=== PATIENT | male | born 1945 | race Caucasian/White ===

== ENCOUNTER 2018-10-24 05:15 | Emergency (ER) | payer OTHER ==
[~2018-10-24] VITALS: Ht 177.8 cm; Wt 125.6 kg
[~2018-10-24 05:15] MED LIST: ACIDOPHILUS1 EAC1 PO; ASPI325 PO; ASPI81CH PO; ATOR20 PO; CALCAVITD PO; CEFAZOLIN2 GM/50 M1 IV; CYCL10 PO; DOCU100 PO; ELIQUIS5 MG PO; ERGO400 PO; FERR325 PO; FISH1000 PO; Flonase 0.05% N16 GM INH; Flovent Diskus50 MCG; GABA300 PO; GLUCHON PO; HYDACE10B PO; Hair, Skin & N1 EACH PO; IBUP800 PO; INDO50 PO; LAVAP17G PO; LISHYD2025 PO; MORP30ER PO; Metoprolol Tar100 MG PO; NAPR500 PO; OMEG1CAP30 PO; OMEP20ER PO; OXYACE5T PO; OXYC5 PO; Omeprazole20 M1 PO; Prilosec Otc20 MG PO; TAMS.4ER PO; TERA5 PO; XARELTO20 MG PO; ZESTORETIC 20-121 EA PO
[2018-10-24] MEDS ORDERED: METPRE4 PO (05:38)
[2018-10-24] MEDS ORDERED: Zantac150 MG PO (05:39)
[2018-10-24] MEDS ORDERED: Vitamin D2000 UNIT PO (05:39)
[2018-10-24] MEDS ORDERED: ELIQUIS2.5 MG PO (05:40)
[2018-10-24] MEDS ORDERED: TORSE20 PO (05:41)
[2018-10-24] MEDS ORDERED: TIZA4 PO (05:42)
[2018-10-24 06:09] LABS: BASOPHILS ABSOLUTE AUTO 0.04 K/mm3 (0.00-0.23); BASOPHILS PERCENT AUTO 0 % (0-2); EOSINOPHILS ABSOLUTE AUTO 0.16 K/mm3 (0.00-0.68); EOSINOPHILS PERCENT AUTO 2 % (0-6); Hematocrit 39.4 % (37.0-53.0); IMMATURE GRAN ABSOLUTE AUTO 0.04 K/mm3 (0.00-0.10); IMMATURE GRAN PERCENT AUTO 0 % (0-1); LYMPHOCYTES ABSOLUTE AUTO 2.28 K/mm3 (0.84-5.20); LYMPHOCYTES PERCENT AUTO 24 % (21-46); MONOCYTES PERCENT AUTO 15 % (4-13); Mean Corpuscular HGB 29.4 pg (26.0-34.0); Mean Corpuscular Volume 89 fL (80-100); Mean Platelet Volume 9.8 fL (9.1-12.4); NEUTROPHILS ABSOLUTE AUTO 5.74 K/mm3 (1.96-9.15); NEUTROPHILS PERCENT AUTO 59 % (41-73); Platelet Count 284 K/mm3 (150-400); RDW Standard Deviation 42.5 fL (35.1-46.3); Red Blood Cell Count 4.42 M/mm3 (4.30-5.90); White Blood Cell Count 9.66 K/mm3 (4.00-11.30)
[2018-10-24 06:22] LABS: Troponin I <0.015 ng/mL (0.000-0.040)
[2018-10-24 06:23] LABS: Alanine Aminotransfer (ALT/SGP 25 U/L (12-78); Albumin, Blood 3.3 g/dL (3.4-5.0); Albumin/Globulin Ratio 0.9 (0.8-1.8); Alk Phos 52 U/L (50-136); Anion Gap 9 mmol/L (6-16); Aspartate Aminotrans (AST/SGOT 20 U/L (12-37); Bilirubin, Total 0.4 mg/dL (0.1-1.0); Blood Urea Nitrogen 31 mg/dL (8-24); CO2, Blood 29 mmol/L (21-32); Calcium, Blood 8.9 mg/dL (8.5-10.1); Chloride, Blood 102 mmol/L (98-108); Creatinine, Blood 0.89 mg/dL (0.60-1.20); Globulin, Blood 3.8 g/dL (2.2-4.0); Glomerular Filtration Rate >60 (60-); Glucose, Blood 90 mg/dL (70-99); Potassium, Blood 3.2 mmol/L (3.5-5.5); Sodium, Blood 140 mmol/L (136-145); Total Protein, Blood 7.1 g/dL (6.4-8.2)
== END 2018-10-24 11:29 | disposition home or self-care (01) ==
LOC: ER 05:15
PROVIDERS: Emergency Medicine
DX: R07.9 Chest pain, unspecified (principal); G89.29 Other chronic pain; M54.9 Dorsalgia, unspecified; Z87.891 Personal history of nicotine dependence; Z88.5 Allergy status to narcotic agent; Z88.1 Allergy status to other antibiotic agents; Z88.8 Allergy status to other drugs, medicaments and biological substances; Z79.899 Other long term (current) drug therapy; Z79.891 Long term (current) use of opiate analgesic; Z79.01 Long term (current) use of anticoagulants
CPT/HCPCS: 36415; 71046; 80053; 83690; 84484; 85025; 93005; 93010; 96374; 96375; 99285-25; J1170; J2270; J2405

== ENCOUNTER 2020-03-15 14:01 | Inpatient (IN) | payer OTHER ==
[~2020-03-15] VITALS: Ht 177.8 cm; Wt 142.0 kg
[~2020-03-15 14:01] MED LIST changes: +ELIQUIS2.5 MG PO; -LAVAP17G PO; +METPRE4 PO; +MIRALAX17 GM PO; +TIZA4 PO; +TORSE20 PO; +Vitamin D2000 UNIT PO; +Zantac150 MG PO
[2020-03-15 14:43] LABS: BASOPHILS ABSOLUTE AUTO 0.07 K/mm3 (0.00-0.23); BASOPHILS PERCENT AUTO 1 % (0-2); EOSINOPHILS ABSOLUTE AUTO 0.19 K/mm3 (0.00-0.68); EOSINOPHILS PERCENT AUTO 2 % (0-6); Hematocrit 44.8 % (37.0-53.0); Hemoglobin 13.4 g/dL (13.5-17.5); IMMATURE GRAN ABSOLUTE AUTO 0.03 K/mm3 (0.00-0.10); IMMATURE GRAN PERCENT AUTO 0 % (0-1); LYMPHOCYTES ABSOLUTE AUTO 1.33 K/mm3 (0.84-5.20); LYMPHOCYTES PERCENT AUTO 14 % (21-46); MONOCYTES ABSOLUTE AUTO 0.96 K/mm3 (0.16-1.47); MONOCYTES PERCENT AUTO 10 % (4-13); Mean Corpuscular HGB 26.6 pg (26.0-34.0); Mean Corpuscular HGB Conc 29.9 g/dL (31.5-36.5); Mean Corpuscular Volume 89 fL (80-100); Mean Platelet Volume 10.4 fL (9.1-12.4); NEUTROPHILS ABSOLUTE AUTO 7.07 K/mm3 (1.96-9.15); NEUTROPHILS PERCENT AUTO 73 % (41-73); Platelet Count 244 K/mm3 (150-400); RDW Coefficient Variation 15.4 % (11.7-14.2); RDW Standard Deviation 50.1 fL (35.1-46.3); Red Blood Cell Count 5.03 M/mm3 (4.30-5.90); White Blood Cell Count 9.65 K/mm3 (4.00-11.30)
[2020-03-15 15:05] LABS: Alanine Aminotransfer (ALT/SGP 28 U/L (12-78); Albumin, Blood 3.1 g/dL (3.4-5.0); Albumin/Globulin Ratio 0.7 (0.8-1.8); Alk Phos 62 U/L (50-136); Anion Gap 7 mmol/L (6-16); Aspartate Aminotrans (AST/SGOT 24 U/L (12-37); Bilirubin, Total 0.7 mg/dL (0.1-1.0); Blood Urea Nitrogen 27 mg/dL (8-24); Bun/Creatinine Ratio 28.6 (12.0-20.0); CO2, Blood 30 mmol/L (21-32); Calcium, Blood 9.1 mg/dL (8.5-10.1); Chloride, Blood 100 mmol/L (98-108); Creatinine, Blood 0.94 mg/dL (0.60-1.20); Globulin, Blood 4.2 g/dL (2.2-4.0); Glomerular Filtration Rate >60 (60-); Glucose, Blood 110 mg/dL (70-99); Potassium, Blood 4.4 mmol/L (3.5-5.5); Sodium, Blood 137 mmol/L (136-145); Total Protein, Blood 7.3 g/dL (6.4-8.2); Troponin I 0.015 ng/mL (0.000-0.040)
[2020-03-15] MEDS ORDERED: PREGABALIN100 MG PO (15:54)
[2020-03-15] MEDS ORDERED: TIZANIDINE HCL2 M1 PO (15:55)
[2020-03-15] MEDS ORDERED: METO50ER PO (15:56)
[2020-03-15] MEDS ORDERED: POTA10T PO (15:56)
[2020-03-15] MEDS ORDERED: PEPCID40 MG PO (15:57)
[2020-03-15] MEDS ORDERED: FLUT.05NI (15:58)
[2020-03-15 18:36] LABS: Influenza A, PCR Negative (NEGATIVE); Influenza B, PCR Negative (NEGATIVE); Resp Syncytial Virus, PCR Negative (NEGATIVE); SARS-Cov-2 (COVID-19) PCR, MMC Negative (NEGATIVE)
--- NOTE | 2020-03-15 20:54 | NUR ---
PATIENT IS A NEW ADMIT FROM THE ED. AXOX 4 AND THREE PERSON TRANFER FROM [facility] TO BED. SOB W/EXERTION. ON 2L O2 NC AND RA BASELINE. REPORTS GENERAL PAIN AND RECEIVED NORCO IN ED. DENIES N/V. TELEMETRY PLACED AND TECH REPORTS A-FIB ONE TEENS. ORIENTED TO ROOM AND CALL LIGHT. REPORTS NO TV AT THIS TIME. CALL LIGHT IN REACH.
--- NOTE | 2020-03-15 23:11 | NUR ---
PATIENT HAVING INCREASED ANXIETY WITH SOB. REQUEST FLONASE AND GIVEN PER EMAR. REPORTS HELPS WITH HIS BREATHING. NORCO GIVEN PER EMAR FOR BACK PAIN. CALL LIGHT IN REACH.
--- NOTE | 2020-03-16 01:25 | NUR ---
HOSPITALIST DR LIMON ORDER ATIVAN 0.5 MG FOR INCREASED ANXIETY X ONE.
--- NOTE | 2020-03-16 04:01 | NUR ---
SHIFT SUMMARY PATIENT ANXIOUS T/O SHIFT. AXOX 3 AND BEDREST. ON 4L O2 NC AND SOB W/EXERTION. HOSPITALIST DR LIMON ORDERED PO ATIVAN 0.5 MG X ONE FOR ANXIETY. PATIENT ABLE TO SLEEP AFTER ANXIETY REDUCED. NORCO GIVEN BACK/SHOULDER PAIN AND ZANAFLEX GIVEN FOR MUSCLE SPASM. PIV REMAINS INTACT. VETERINARY PRACTITIONER REPORTS AFIB RVR IN THE ONE TEENS. USING URINAL AT BEDSIDE WITH ASSIST. LASIX GIVEN IN ED. TAKES MEDICATION WHOLE WITH WATER. VSS/AFEBRILE. CALL LIGHT IN REACH. BED IN LOWEST POSITION. WILL CONTINUE TO MONITOR UNTIL DAY SHIFT NURSE ASSUMES CARE.
[2020-03-16 05:04] LABS: BASOPHILS ABSOLUTE AUTO 0.06 K/mm3 (0.00-0.23); BASOPHILS PERCENT AUTO 1 % (0-2); EOSINOPHILS ABSOLUTE AUTO 0.04 K/mm3 (0.00-0.68); EOSINOPHILS PERCENT AUTO 0 % (0-6); Hematocrit 47.1 % (37.0-53.0); Hemoglobin 13.7 g/dL (13.5-17.5); IMMATURE GRAN ABSOLUTE AUTO 0.05 K/mm3 (0.00-0.10); IMMATURE GRAN PERCENT AUTO 1 % (0-1); LYMPHOCYTES ABSOLUTE AUTO 1.47 K/mm3 (0.84-5.20); LYMPHOCYTES PERCENT AUTO 14 % (21-46); MONOCYTES PERCENT AUTO 8 % (4-13); Mean Corpuscular HGB 26.8 pg (26.0-34.0); Mean Corpuscular HGB Conc 29.1 g/dL (31.5-36.5); Mean Corpuscular Volume 92 fL (80-100); Mean Platelet Volume 10.7 fL (9.1-12.4); NEUTROPHILS ABSOLUTE AUTO 7.85 K/mm3 (1.96-9.15); NEUTROPHILS PERCENT AUTO 76 % (41-73); Platelet Count 249 K/mm3 (150-400); RDW Coefficient Variation 15.4 % (11.7-14.2); RDW Standard Deviation 52.1 fL (35.1-46.3); Red Blood Cell Count 5.12 M/mm3 (4.30-5.90); White Blood Cell Count 10.27 K/mm3 (4.00-11.30)
[2020-03-16 05:23] LABS: Alanine Aminotransfer (ALT/SGP 34 U/L (12-78); Albumin, Blood 3.4 g/dL (3.4-5.0); Albumin/Globulin Ratio 0.8 (0.8-1.8); Alk Phos 67 U/L (50-136); Anion Gap 6 mmol/L (6-16); Aspartate Aminotrans (AST/SGOT 29 U/L (12-37); Bilirubin, Total 0.7 mg/dL (0.1-1.0); Blood Urea Nitrogen 34 mg/dL (8-24); Bun/Creatinine Ratio 30.1 (12.0-20.0); CO2, Blood 33 mmol/L (21-32); Chloride, Blood 98 mmol/L (98-108); Creatinine, Blood 1.13 mg/dL (0.60-1.20); Globulin, Blood 4.4 g/dL (2.2-4.0); Glomerular Filtration Rate >60 (60-); Glucose, Blood 117 mg/dL (70-99); Potassium, Blood 5.4 mmol/L (3.5-5.5); Sodium, Blood 137 mmol/L (136-145); Total Protein, Blood 7.8 g/dL (6.4-8.2)
[2020-03-16 12:22] LABS: PCO2 Arterial 68.9 mmHg (35-45); PO2 Arterial 52.3 mmHg (80-100); pH Blood Arterial 7.26 (7.35-7.45)
--- NOTE | 2020-03-16 13:25 | NUR ---
PT ARRIVED TO ROOM PCU 11 ON BIPAP WITH SETTINGS 16/10 AND FIO2 50%. Pt appears comfortable, dozing. VSS. WIll orient to room and unit when awake. Bed alarm on, Call light in reach.
--- NOTE | 2020-03-16 14:30 | NUR ---
PT ARRIVED TO PCU FROM MEDICAL FLOOR THIS AFTERNOON. PT VS STABLE WITH THE EXCEPTION OF THE INCREASED OXYGEN NEED. PT ARRIVED ON BIPAP, SETTINGS WHICH HAVE SINCE BEEN ADJUSTED BASED ON ABG RESULTS. PT IS TYPICALLY ON RA AT [facility]. PT HAS 2+ PITTING EDEMA BLE AND BUE. PT IS ON CARDIAC DIET BUT IS VERY LETHARGIC AND CURRENTLY NOT AROUSABLE ENOUGH FOR ANY PO INTAKE. LUNGS ARE COARSE BILATERAL UPPER LOBES AND DIM IN LOWER LOBES. PT HAS VERY DRY, TIGHT AND SHINY SKIN BLE. PT IS UNABLE TO ANSWER QUESTIONS DUE TO LETHARGY.
[2020-03-16 14:41] LABS: PCO2 Arterial 79.3 mmHg (35-45); PO2 Arterial 90.5 mmHg (80-100); pH Blood Arterial 7.23 (7.35-7.45)
--- NOTE | 2020-03-16 15:07 | NUR ---
Call to Dr. Farah regarding pt's worsening ABG. The pt is actually more awake than he was an hour ago, awakening to verbal stimuli and now asking for something to drink. New orders were received.
--- NOTE | 2020-03-16 15:47 | NUR ---
Echocardiogram completed.
--- NOTE | 2020-03-16 16:00 | NUR ---
Pt awakens easily to verbal stimuli, opens his eyes slightly and nods when asked if he would like a moist swab for his mouth. He was able to run the swab around his mouth a couple of times, and then assist with putting the bipap mask back on. Vital signs taken, remain stable. Resting with eyes closed, tolerating v60 bipap at this time. No family at the bedside at this time. Bed alarm is on for safety.
--- NOTE | 2020-03-16 18:11 | NUR ---
Pt awakened briefly and was pulling bipap mask off, saying he needed to pee about an hour ago. Spo2 quickly dropped from 93% to 83% without the mask on, and it was replaced without further resistance from the pt. He used the urinal while still lying in bed, and wearing the bipap. Attends change and repositioned to right side lying, still wearing bipap. IV restarts done as the IV was leaking on the left hand. He slept through the IV restarts, without any flinching at all. RT to repeat ABG at any time now.
[2020-03-16 18:38] LABS: PCO2 Arterial 74.6 mmHg (35-45); PO2 Arterial 74.1 mmHg (80-100); pH Blood Arterial 7.25 (7.35-7.45)
--- NOTE | 2020-03-16 19:23 | NUR ---
summary Marek continues to require the bipap to maintain spo2 greater than 90%. Very brief breaks for moistening mouth but the pt does not tolerate being off for more than 1-2 minutes and spo2 drops to 83-85%. Just 15 minutes ago he was shouting out while wearing the bipap for water, and was given a brief break as described above. He is lethargic most of the time, but when awakens he is directable and answering questions appropriately. Third ABG was not much better than the previous two.
[2020-03-17 04:57] LABS: Anion Gap 5 mmol/L (6-16); Blood Urea Nitrogen 38 mg/dL (8-24); Bun/Creatinine Ratio 35.5 (12.0-20.0); CO2, Blood 35 mmol/L (21-32); Calcium, Blood 8.6 mg/dL (8.5-10.1); Chloride, Blood 98 mmol/L (98-108); Creatinine, Blood 1.07 mg/dL (0.60-1.20); Glomerular Filtration Rate >60 (60-); Glucose, Blood 122 mg/dL (70-99); Potassium, Blood 4.1 mmol/L (3.5-5.5); Sodium, Blood 138 mmol/L (136-145)
--- NOTE | 2020-03-17 05:39 | NUR ---
SHIFT SUMMARY PATIENT WAS A LITTLE LETHARGIC AT BEGINNING OF SHIFT BUT COULD STILL HOLD A CONVERSATION AND IS ORIENTED X4. PATIENT BECAME MORE ALERT LATER ON IN THE NIGHT AFTER SLEEPING WITH THE BIPAP ON. PATIENT SAT AT SIDE OF BED FOR APPROX. 30 MIN, HAS BEEN REPOSITIONED Q2 HOURS. PATIENT CURRENTLY SITTING UP, BRUSHING HIS OWN TEETH AND WASHING HIS FACE. 02 SATS 88-93% ON 2L VIA NC. VSS, NO ACUTE CHANGES. MEDICATE FOR BACK PAIN, SEE EMAR. CALL LIGHT IN REACH.
--- NOTE | 2020-03-17 09:14 | NUR ---
PT OFF FLOOR TO CTA.
--- NOTE | 2020-03-17 10:55 | NUR ---
PATIENT SOB AFTER USING BEDPAN. SPO2 IN LOW 90'S ON 2L O2 VIA NC BUT PATIENT REPORTING INCREASED DIFFICULTY BREATHING. HEART RATE TRENDING UP IN THE 120'S. PLACED PATIENT ON BIPAP 20/10 FIO2 25%. BOOSTED HIM IN BED AND REPOSITIONED HIM. PATIENT REPORTING RELIEF.
--- NOTE | 2020-03-17 17:45 | NUR ---
CALLED DR. BARBOUR. NOTIFIED HER PATIENT REQUESTING GAS-X. ORDERS RECEIVED FOR SIMETHICONE 1 TABLET PO ACHS PRN GAS. ORDERS READ BACK AND VERIFIED.
--- NOTE | 2020-03-17 19:29 | NUR ---
SHIFT SUMMARY: PATIENT A/OX3. NORCO GIVEN FOR ABD PAIN. ON 2-4L O2 VIA NC. WORE BIPAP FOR SLEEP. HEART RATE IN THE 100S-120'S AT TIMES, METOPROLOL DOSE INCREASED PER DR. BARBOUR. MULTIPLE ATTEMPTS TO HAVE BM, PATIENT DID HAVE A SMEAR. UP TO COMMODE AND RECLINER VIA LIFT. WORKED WITH PHYSICAL THERAPY. REPOSITIONED Q2H. ABD ULTRASOUND COMPLETED THIS EVENING. REPORT GIVEN TO ONCOMING RN.
[2020-03-18 05:02] LABS: BASOPHILS ABSOLUTE AUTO 0.02 K/mm3 (0.00-0.23); BASOPHILS PERCENT AUTO 0 % (0-2); EOSINOPHILS ABSOLUTE AUTO 0.02 K/mm3 (0.00-0.68); EOSINOPHILS PERCENT AUTO 0 % (0-6); Hematocrit 42.4 % (37.0-53.0); Hemoglobin 12.6 g/dL (13.5-17.5); IMMATURE GRAN ABSOLUTE AUTO 0.04 K/mm3 (0.00-0.10); IMMATURE GRAN PERCENT AUTO 1 % (0-1); LYMPHOCYTES ABSOLUTE AUTO 0.97 K/mm3 (0.84-5.20); LYMPHOCYTES PERCENT AUTO 13 % (21-46); MONOCYTES ABSOLUTE AUTO 0.69 K/mm3 (0.16-1.47); MONOCYTES PERCENT AUTO 9 % (4-13); Mean Corpuscular HGB 26.8 pg (26.0-34.0); Mean Corpuscular HGB Conc 29.7 g/dL (31.5-36.5); Mean Corpuscular Volume 90 fL (80-100); Mean Platelet Volume 10.7 fL (9.1-12.4); NEUTROPHILS ABSOLUTE AUTO 5.77 K/mm3 (1.96-9.15); NEUTROPHILS PERCENT AUTO 77 % (41-73); Platelet Count 227 K/mm3 (150-400); RDW Coefficient Variation 15.2 % (11.7-14.2); RDW Standard Deviation 49.9 fL (35.1-46.3); Red Blood Cell Count 4.71 M/mm3 (4.30-5.90); White Blood Cell Count 7.51 K/mm3 (4.00-11.30)
[2020-03-18 05:27] LABS: Alanine Aminotransfer (ALT/SGP 33 U/L (12-78); Albumin/Globulin Ratio 0.7 (0.8-1.8); Alk Phos 56 U/L (50-136); Anion Gap 5 mmol/L (6-16); Aspartate Aminotrans (AST/SGOT 41 U/L (12-37); Bilirubin, Total 0.8 mg/dL (0.1-1.0); Blood Urea Nitrogen 29 mg/dL (8-24); Bun/Creatinine Ratio 32.3 (12.0-20.0); CO2, Blood 36 mmol/L (21-32); Calcium, Blood 8.6 mg/dL (8.5-10.1); Chloride, Blood 98 mmol/L (98-108); Globulin, Blood 4.1 g/dL (2.2-4.0); Glomerular Filtration Rate >60 (60-); Glucose, Blood 103 mg/dL (70-99); Potassium, Blood 4.1 mmol/L (3.5-5.5); Sodium, Blood 139 mmol/L (136-145); Total Protein, Blood 7.1 g/dL (6.4-8.2)
--- NOTE | 2020-03-18 05:34 | NUR ---
STAPLER MACHINE SUMMARY PT HAS BEEN AWAKE ALL NIGHT W C/O STOMACH PAIN AND DIFFICULTY SLEEPING. PT WAS NOT TOLERANT OF BIPAP SO PLACED ON CPAP W O2 BLEED IN. PT ATTEMPTED TO HAVE BM W NO SUCCESS. PT REQUIRING O2 TITRATION ALL NIGHT DUE TO DESATURATIONS AND CONTINUING TO PULL HIS MASK OFF. BP STABLE, WCTM.
--- NOTE | 2020-03-18 09:30 | NUR ---
DR BROWN IN ROOM TO EVALUATE PT. THIS RN INFORMED DR OF PT'S MENTAL STATUS CHANGES OVERNIGHT, PT WAS REPORTED TO BE CONFUSED AND REFUSED TO WEAR HIS BIPAP. PT'S HOME CPAP IS NOW AT BEDSIDE, BUT PT HAS DECLINED TO WEAR IT THIS AM. PT STATED TO THIS RN & MD THAT HE FEELS LIKE HE HAS NOT HAD ANY SLEEP. ORDERS RECEIVED.
--- NOTE | 2020-03-18 13:05 | NUR ---
PT CONTINUES TO C/O ABD PAIN AND FEELING SOB. PT IS ALERT, BUT EASILY AGITATED AND CONFUSED. DR BARBOUR CONTACTED AND ORDERS RECEIVED.
--- NOTE | 2020-03-18 18:05 | NUR ---
SPOKE WITH DR. BARBOUR. PATIENT HAD LARGE FORMED BM THIS AFTERNOON. HAS BEEN ABLE TO SLEEP LATE THIS AFTERNOON AND EVENING AND HAS BEEN LESS AGITATED. FENTANYL GIVEN FOR PAIN. DR. BARBOUR STATES PLAN IS TO MONITOR TONIGHT.
--- NOTE | 2020-03-18 18:34 | NUR ---
PT WAS GIVEN LACTULOSE ENEMA PER MD ORDERS AND HAD A LARGE BM A RESULT. MENTAL STATUS APPEARED TO IMPROVE OVER THE AFTERNOON. PT WAS ABLE TO SLEEP FOR A SHORT PERIOD OF TIME THIS AFTERNOON. PT'S CAME IN TO VISIT HIM. DR BARBOUR UPDATED ON PT'S CONTINUING ABD PAIN AND AMS. PT MEDICATED FOR PAIN AND WAS ABLE TO GET SOME REST THIS AFTERNOON.
--- NOTE | 2020-03-19 01:05 | NUR ---
ASSUMED CARE OF PATIENT AT APPROXIMATELY 1905 FROM HEBERT Talley RN AND LAURA Ngo RN. PATIENT ALERT AND ORIENTED TO SELF. PATIENT CONFUSED OFF AND ON T/O SHIFT. PATIENT ATTEMPTS TO GET UP ON SIDE OF BED; FALL RISK AND OXYGEN SATURATION DROPS AT TIMES. PATIENT ALSO PULLING HOME CPAP OFF NUMBEROUS TIMES TONIGHT. PATIENT REPORTS PAIN IN HIS HEAD; MEDICATED PER EMAR. USES URINAL IN BED. PIV S/L. AFIB ON TELE; OXYGEN SATURATION ABOVE 90% ON 2LPM VIA NC OR ON CPAP W/ 2-5 LPM BLEED IN. PATIENT CURRENTLY RESTING IN BED; CALL LIGHT IN REACH; BED IN LOWEST POSISTION; BED ALARM ON.
[2020-03-19 04:57] LABS: BASOPHILS ABSOLUTE AUTO 0.05 K/mm3 (0.00-0.23); BASOPHILS PERCENT AUTO 1 % (0-2); EOSINOPHILS ABSOLUTE AUTO 0.06 K/mm3 (0.00-0.68); EOSINOPHILS PERCENT AUTO 1 % (0-6); Hematocrit 45.4 % (37.0-53.0); Hemoglobin 12.7 g/dL (13.5-17.5); IMMATURE GRAN ABSOLUTE AUTO 0.03 K/mm3 (0.00-0.10); IMMATURE GRAN PERCENT AUTO 0 % (0-1); LYMPHOCYTES ABSOLUTE AUTO 1.12 K/mm3 (0.84-5.20); LYMPHOCYTES PERCENT AUTO 16 % (21-46); MONOCYTES ABSOLUTE AUTO 0.94 K/mm3 (0.16-1.47); MONOCYTES PERCENT AUTO 13 % (4-13); Mean Corpuscular HGB 25.8 pg (26.0-34.0); Mean Corpuscular Volume 92 fL (80-100); Mean Platelet Volume 10.6 fL (9.1-12.4); NEUTROPHILS ABSOLUTE AUTO 4.84 K/mm3 (1.96-9.15); NEUTROPHILS PERCENT AUTO 69 % (41-73); Platelet Count 234 K/mm3 (150-400); RDW Coefficient Variation 15.2 % (11.7-14.2); RDW Standard Deviation 51.6 fL (35.1-46.3); Red Blood Cell Count 4.93 M/mm3 (4.30-5.90); White Blood Cell Count 7.04 K/mm3 (4.00-11.30)
[2020-03-19 05:17] LABS: Alanine Aminotransfer (ALT/SGP 35 U/L (12-78); Albumin, Blood 3.2 g/dL (3.4-5.0); Albumin/Globulin Ratio 0.8 (0.8-1.8); Alk Phos 60 U/L (50-136); Anion Gap 1 mmol/L (6-16); Aspartate Aminotrans (AST/SGOT 34 U/L (12-37); Bilirubin, Total 0.8 mg/dL (0.1-1.0); Blood Urea Nitrogen 23 mg/dL (8-24); Bun/Creatinine Ratio 27.9 (12.0-20.0); CO2, Blood 42 mmol/L (21-32); Calcium, Blood 8.9 mg/dL (8.5-10.1); Chloride, Blood 98 mmol/L (98-108); Creatinine, Blood 0.82 mg/dL (0.60-1.20); Globulin, Blood 4.1 g/dL (2.2-4.0); Glomerular Filtration Rate >60 (60-); Glucose, Blood 97 mg/dL (70-99); Potassium, Blood 3.9 mmol/L (3.5-5.5); Sodium, Blood 141 mmol/L (136-145); Total Protein, Blood 7.3 g/dL (6.4-8.2)
--- NOTE | 2020-03-19 06:43 | NUR ---
PATIENT SLEPT ABOUT NINE HOURS. PATIENT PULLED OXYGEN AND CPAP OFF MULTIPLE TIMES T/O NIGHT. NO OTHER ACUTE CHANGES.
--- NOTE | 2020-03-19 18:50 | NUR ---
SHIFT SUMMARY: PT RANGING BETWEEN ALERT AND LETHARGIC T/OUT SHIFT, ORIENTED TO SELF, PLACE, SITUATION, PRESIDENT. PT MAINTAINING O2 SATS >92% ON O2 VIA NC AT 2-3 L/MIN. PT CONTINUES AFIB RATE CONTROLLED. PT PAIN MEDICATIONS HAVE BEEN DC'D TODAY, PT REPOSITIONED OFTEN FOR COMFORT, MEDICATED PER EMAR. PT CONTINUES TO BE WEAK BUT ABLE TO ASSIST WITH ROLLING SIDE TO SIDE FOR ATTENS CHANGES. DIURESIS CONTINUES. WILL CONTINUE TO MONITOR AND TREAT UNTIL CHANGE OF SHIFT.
--- NOTE | 2020-03-19 22:32 | NUR ---
PATIENT REPORTS TO OTHER RN CONNIE THAT HE WAS HAVING CHEST PRESSURE 8/10; PATIENT REPORTS THAT HE HAS HAD THIS PAIN BEFORE AND "ANOTHER BREATH HELPED"; DEEP BREATH MAKES PRESSURE WORSE. PATIENT WAS LYING FLAT IN BED; OXYGEN TUBING REMOVED MULTIPLE TIMES SINCE SHIFT STARTED. PATIENT REPOSISTIONED FOWLERS; REPORTS FEELING BETTER; RT CALLED FOR BREATHING TREATMENT FOR SOB; NO CHANGES ON TELEMETRY. PATIENT REPORTS CHEST PRESSURE GONE WITH 6 MINUTES; IV TORADOL GIVEN. DISCUSSED WITH PASSENGER RELATIONS REPRESENTATIVE. PATIENT REPORTS FEELING PAINFUL ALL OVER BUT NO CHEST PAIN CURRENTLY.
--- NOTE | 2020-03-19 23:00 | NUR ---
ASSUMED CARE OF PATIENT AT APPROXIMATELY 1905 FROM KINGA Gómez RN. PATIENT ALERT AND ORIENTED TO SELF. PATIENT CONFUSED OFF AND ON T/O SHIFT. PATIENT ATTEMPTS TO GET UP ON SIDE OF BED; FALL RISK AND OXYGEN SATURATION DROPS AT TIMES. PATIENT VERY PAINFUL AT TIMES; MOANING OUT IN HALLWAY; REPOSISTIONED FREQUENTLY; MEDICATED PER EMAR WITH TYLENOL AND IV TORADOL; OTHER PAIN MEDICATIONS D/C'D TODAY. USES URINAL IN BED; INCONTINENT OF SMEAR TODAY. PIV S/L. AFIB ON TELE; OXYGEN SATURATION ABOVE 90% ON 3LPM VIA NC OR ON CPAP W/ 2-5 LPM BLEED IN. PATIENT MAKING COMMENTS TO STAFF AT START OF SHIFT ABOUT WANTING TO SEE HIS HOME FRONT OFFICE HELP "I DONT KNOW IF THEY MAKE HOME VISITS" AND REPORTEDLY TOLD PCT THAT HE WAS GOING TO TAKE THE BIG SLEEP TONIGHT. PATIENT CURRENTLY RESTING IN BED; CALL LIGHT IN REACH; BED IN LOWEST POSISTION; BED ALARM ON.
--- NOTE | 2020-03-19 23:06 | NUR ---
RT CALLED TO REPORT PATIENT REQUEST FOR BREATHING TREATMENT
--- NOTE | 2020-03-20 02:45 | NUR ---
PATIENT NOT TOLERATING HOME CPAP; REMOVED NUMEROUS TIMES; REPORTS TOO MUCH PRESSURE OR TOO COLD OF AIR. NC PLACED ON 3LPM
--- NOTE | 2020-03-20 06:03 | NUR ---
PATIENT UP MOST OF NIGHT; MOANING IN HALLWAY; MEDICATED PER EMAR FOR PAIN T/O SHIFT. PATIENT WORE NC FOR REST OF NIGHT DUE TO NOT BEING ABLE TOLERATE HOME CPAP. CURRENTLY EATING A SANDWICH.
--- NOTE | 2020-03-20 14:40 | NUR ---
Pt resting in bed upon arrival. Pt is A&OX4 and reports 5/10 pain in his neck and back. Pt appears moderately dyspneic as evidenced by work of breathing when attempting to speak. Pt speaks in 2 to 3 word sentences. Pt slow to respond and appears lethargic. Listened as Pt reports having back surgery approxiametly 1 year ago and has difficulty with ambulation since. Pt reports having improvement after rehabilitation. Continued therapeutic listening then ended visit to allow Pt to rest. Spoke with Bedside RN Rg and discussed case prior to Pt visit. Palliative Care will remain avialable.
--- NOTE | 2020-03-20 18:44 | NUR ---
SHIFT SUMMARY: NO ACUTE CHANGES TO PT MENTATION LEVEL, PT CONTINUES A&OX3 WITH PERIODS OF LETHARGY. PT CONTINUES ON O2 VIA NC AT 3L/MIN, MAINTAINING SATS >92%, STATES MILD SOB. PT CONTINUES WEAK AND DECONDITIONED, REFUSES PT/OT TODAY, DOES CONTINUE TO ASSIST WITH ROLLING SIDE TO SIDE AND BOOSTING IN BED. PT ON 2000ML FLUID RESTRICTION, TOLERATING WELL. NO BM TODAY. PT USES URINAL IN BED W/MINIMAL ASSISTANCE. REPORT GIVEN TO MICK POWELL IN MEDICAL DEPT.
--- NOTE | 2020-03-21 04:27 | NUR ---
LABORATORY MECHANIC HELPER SUMMARY A/O TO SELF AND FAMILY. PT CONTINUES TO REMOVE CPAP AT NIGHT WITH DESATS IN THE LOW 80S. CONT BIOX IN PLACE WELL CONTINOUS MONITORING. REMAINS LETHARGIC AND CONFUSED. VSS. NO ACUTE NEEDS AT THIS TIME. BED IN LOWEST POSITION WITH CALL LIGHT IN REACH. WILL CONTINUE TO MONITOR AND REPORT TO ONCOMING RN.
[2020-03-21 05:15] LABS: BASOPHILS ABSOLUTE AUTO 0.03 K/mm3 (0.00-0.23); BASOPHILS PERCENT AUTO 0 % (0-2); EOSINOPHILS ABSOLUTE AUTO 0.04 K/mm3 (0.00-0.68); EOSINOPHILS PERCENT AUTO 1 % (0-6); Hematocrit 46.5 % (37.0-53.0); Hemoglobin 13.2 g/dL (13.5-17.5); IMMATURE GRAN ABSOLUTE AUTO 0.03 K/mm3 (0.00-0.10); IMMATURE GRAN PERCENT AUTO 0 % (0-1); LYMPHOCYTES PERCENT AUTO 18 % (21-46); MONOCYTES ABSOLUTE AUTO 0.73 K/mm3 (0.16-1.47); MONOCYTES PERCENT AUTO 10 % (4-13); Mean Corpuscular HGB 26.5 pg (26.0-34.0); Mean Corpuscular HGB Conc 28.4 g/dL (31.5-36.5); Mean Corpuscular Volume 93 fL (80-100); Mean Platelet Volume 10.4 fL (9.1-12.4); NEUTROPHILS ABSOLUTE AUTO 5.49 K/mm3 (1.96-9.15); NEUTROPHILS PERCENT AUTO 71 % (41-73); Platelet Count 211 K/mm3 (150-400); RDW Coefficient Variation 15.5 % (11.7-14.2); RDW Standard Deviation 53.1 fL (35.1-46.3); Red Blood Cell Count 4.98 M/mm3 (4.30-5.90); White Blood Cell Count 7.72 K/mm3 (4.00-11.30)
[2020-03-21 12:50] LABS: Free Thyroxine 0.91 ng/dL (0.70-1.60); Thyroid Stimulating Hormone 0.714 uIU/mL (0.360-4.800)
[2020-03-21] MEDS ORDERED: Cabergoline0.5 MG PO (15:03)
[2020-03-21 15:29] LABS: International Normalized Ratio 1.27; Prothrombin Time Results 13.4 Sec (9.7-11.5)
--- NOTE | 2020-03-21 17:05 | NUR ---
PT HAS BEEN VERY CONFUSED TODAY AOX2 AND COOPERATIVE OF CARE. PT IS BEDREST AT THIS TIME,BUT DID WELL WORKING WITH PHYSICAL THERAPY AND SAT ON EDGE OF BED. PT HAS BEEN ENCOURAGED TO USED CPAP WHEN SLEEPING HIS AMMONIA LEVEL WAS 51. PT HAD STUDENTS IN ROOM ASSISTING IN CARE AND TOLERATED WELL. WILL CONTINUE TO MONITOR. PT DENIES ANY PAIN AT THIS TIME.
[2020-03-22 03:34] LABS: PO2 Arterial 68.3 mmHg (80-100)
[2020-03-22 03:35] LABS: PCO2 Arterial 84.4 mmHg (35-45); pH Blood Arterial 7.24 (7.35-7.45)
--- NOTE | 2020-03-22 04:32 | NUR ---
SHIFT SUMMARY PT HAS BEEN CONFUSED SINCE ASSUMING CARE, WAS ABLE TO CONVINCE PT TO TAKE SOME OF HIS NOC MEDS THEN REFUSED REMAINDER, HAS BEEN VERY DROWSY BUT IS A&O X3 W/PERIODS OF CONFUSION; INTERMITTENT W/CPAP THIS SHIFT, CRITICAL CBG CALLED TO MD, PLACED ON BIPAP @ 0415, TOLERATING WELL AT THIS TIME, CONT W/URINAL ASSIST WHEN STAFF IN ROOM/OTHERWISE INCONT OR YELLS OUT, Q2 REPOS, SLEEPING AT THIS TIME, APPEARS TO BE RESTING COMFORTABLY, WILL CONT TO MONITOR UNTIL REPORT GIVEN TO DAY RN.
--- NOTE | 2020-03-22 10:50 | NUR ---
Pt's daughter Leny arrives to office and engages in conversation regarding goals of care. Leny would like for Palliative Care to discuss with Pt and spouse regarding the option for comfort care and hospice. Pt resting in bed upon arrival. Pt appears anxious and dyspneic as evidenced by gasping for air, work of breathing, and moaning. Pt states "I'm ready to go". Requested Pt to elaborate on the meaning of this statement. Pt states "I'm ready to ". Continued therapeutic listening. Pt agreeable for this RN to speak with and daughter regarding his wishes. Pt denies pain at this time. Called and spoke with Pt's Roshni. Engaged in therapeutic conversation regarding goals of care and Pt's wishes. Relayed Pt's wishes and discussed comfort care as an option. Roshni reports being in agreement with Pt's wishes. Educated on comfort care and hospice philosophy with V/U made by Roshni. Instructed on hospice angencies to choose from with Roshni electing [facility]. Instructed that up to 4 visitors is allowed and with no restrictions on visiting hours. Spoke with Dr Wray and Cortney Michele. Dr Wray is in agreement and will place comfort care order. Leny will contact [facility]. Spoke with Bedside RN Anna and discussed case. Pt is bed bound, requires assistance with bathing and dressing. Pt also experiences intermittent incontinence of bowel and bladder. Pt also requires assistance with feeding intermittently. Pt intermittently confused as well. PPS 30% ADLs 6/6 Palliative Care will remain available for symptom management and supportive visits.
--- NOTE | 2020-03-22 17:20 | NUR ---
PT WAS MOVED TO COMFORT CARE TODAY. PT TURNED EVERY COUPLE HOURS AND CHECKED. TREATED FOR PAIN X1 PER EMAR. PT HAS BEEN RESTING COMFORTABLY SINCE. FAMILY HAS BEEN IN TO VISIT. WILL CONTINUE TO MONITOR.
--- NOTE | 2020-03-22 17:42 | NUR ---
Spiritual care note: I met with , Roshni, at bedside. Marek slept peacefully throughout conversation. I provided gentle anticipatory bereavement education counselor to good effect. Roshni accepts Marek's journey and reports gratitude for the time they have had. DtrLeny, yoselyn. Facilitated reminising and prayer with family. They plan to take Marek home with hospice, but understand if he declines quickly, he will stay here. I will remain available.
--- NOTE | 2020-03-22 20:00 | NUR ---
COMFORT: PATIENT IS RESTING WITH EYE'S CLOSE. NO S/S OF PAIN OR DISCOMFORT AT THIS TIME. T&P AND PERSONAL CARE GIVEN. BED ALARM IS ON FOR SAFETY.
--- NOTE | 2020-03-22 23:23 | NUR ---
COMFORT: PATIENT IS RESTING WITH EYE'S CLOSED. NO S/S OF PAIN OR DISCOMFORT. RESPIRATIONS ARE EASY AT 25.
--- NOTE | 2020-03-22 23:25 | NUR ---
COMFORT: PATIENT HAS NO S/S OF DISCOMFORT. RESPIRATIONS ARE SHALLOW AT 30.
--- NOTE | 2020-03-23 05:28 | NUR ---
COMFORT: PATIENT IS RESTING WITH NO S/S OF DISCOMFORT.
--- NOTE | 2020-03-23 05:29 | NUR ---
COMFORT: RESTING WITH EYE'S CLOSED. NO S/S OF DISCOMFORT. RESPIRATIONS ARE EASY AT 25.
--- NOTE | 2020-03-23 05:30 | NUR ---
COMFORT: PATIENT IS RESTING WITH NO S/S OF DISCOMFORT. RESPIRATIONS ARE EASY BUT SHALLOW AT 28. EGG CRATE IS PLACED.
--- NOTE | 2020-03-23 07:49 | NUR ---
SHIFT SUMMARY: PATIENT HAS REMAIN COMFORTABLE THIS SHIFT. NO S/S OF DISCOMFORT OR RESPIRATORY DISTRESS. NC IS ON 3L 02. INC. OF URINE. T&P AND PERSONAL CARE IS GIVEN Q2H. SPOKE WITH DAUGHTER ROGERIO THIS MORNING AND GAVE UPDATE.
--- NOTE | 2020-03-23 10:12 | NUR ---
Comfort Care Visit Pt resting in bed and is non responsive. Pt appears comfortable with no S/S of distress at this time. Family at bedside. Offered therapeutic listening and answered questions. Spoke with Bedside RN Savanna and discussed case. No concerns reported at this time. Palliative Care will remain available for symptom management and supportive visits.
--- NOTE | 2020-03-23 17:03 | NUR ---
SHIFT SUMMARY- PT SLEPT FOR MOST OF THIS SHIFT. PALATIVE CARE WAS IN WITH THE PT SEVERAL TIMES THIS SHIFT. HIS AND DAUGHTER WE AT BEDSIDE. HE APPEARS TO BE COMFORTABLE.
--- NOTE | 2020-03-23 17:12 | NUR ---
Spiritual care note: No family present at time of visit. Marek was not responsive to voice or touch. Breaths very shallow but even. He appears comfortable and well cared-for by nursing. I provided prayer at [facility] and will remain available to family.
== END 2020-03-24 02:40 | DRG 291 ==
LOC: ER 14:01 → PCU 18:41 → MEDS 18:41 → PCU 03-16 13:10 → MEDS 03-20 19:34
PROVIDERS: Internal Medicine; Physician Assistant; ADMIT Internal Medicine
DX: I11.0 Hypertensive heart disease with heart failure (principal); J96.01 Acute respiratory failure with hypoxia; J96.02 Acute respiratory failure with hypercapnia; G92 Toxic encephalopathy; J81.0 Acute pulmonary edema; I48.20 Chronic atrial fibrillation, unspecified; E66.2 Morbid (severe) obesity with alveolar hypoventilation; Z68.41 Body mass index [BMI] 40.0-44.9, adult; Z20.822 Contact with and (suspected) exposure to COVID-19; I50.23 Acute on chronic systolic (congestive) heart failure; Z51.5 Encounter for palliative care; Z66 Do not resuscitate; G47.33 Obstructive sleep apnea (adult) (pediatric); G89.4 Chronic pain syndrome; I27.20 Pulmonary hypertension, unspecified; K74.60 Unspecified cirrhosis of liver; M48.062 Spinal stenosis, lumbar region with neurogenic claudication; M54.9 Dorsalgia, unspecified; N40.0 Benign prostatic hyperplasia without lower urinary tract symptoms; T40.691A Poisoning by other narcotics, accidental (unintentional), initial encounter; Z87.891 Personal history of nicotine dependence; Z79.01 Long term (current) use of anticoagulants; K21.9 Gastro-esophageal reflux disease without esophagitis; Z96.642 Presence of left artificial hip joint; Z99.3 Dependence on wheelchair; J44.9 Chronic obstructive pulmonary disease, unspecified; F41.9 Anxiety disorder, unspecified
CPT/HCPCS: 0241U; 36415; 36600; 71045; 71260; 74150; 76705; 80048; 80053; 82140; 82803; 82947; 83880; 84439; 84443; 84484; 85025; 85610; 93005; 93010; 93306; 94660; 94762; 96374; 97110; 97112; 97116; 97162; 97166; 97530; 97535; 99285-25; A9270; J1885; J1940; J3010; J7040; J7512; Q0177; Q9967